=== PATIENT | male | born 1960 | race Caucasian/White ===

== ENCOUNTER 2017-03-27 20:03 | Emergency (ER) | payer OTHER ==
[~2017-03-27 20:03] MED LIST: CRESTOR40 MG; KEFLEX500 MG PO
[2017-03-27] MEDS ORDERED: ASPIRIN81 M1 PO (20:14)
[2017-03-27] MEDS ORDERED: FISH OIL 11000 MG/CA PO (20:14)
[2017-03-27] MEDS ORDERED: MULTIVITAMINS1 EAC6 PO (20:15)
[2017-03-27 20:35] LABS: URINE LEUKOCYTE ESTERASE NEGATIVE (NEG); URINE PROTEIN MODERATE (NEG)
[2017-03-27 20:36] LABS: URINE APPEARANCE CLOUDY; URINE BILIRUBIN NEGATIVE (NEG); URINE BLOOD LARGE (NEG); URINE COLOR YELLOW; URINE GLUCOSE (UA) MODERATE (NEG); URINE KETONE NEGATIVE (NEG); URINE NITRITE NEGATIVE (NEG)
[2017-03-27 20:40] LABS: BASO % 0.5 % (0-2); EOS % 1.8 % (0-7); EOSINOPHIL ABSOLUTE COUNT 0.1 tho/cmm (0.0-0.7); HGB-HEMOGLOBIN 15.1 gm/dl (13.5-17.0); LYMPH % 33.9 % (20-45); LYMPH ABSOLUTE COUNT 2.7 tho/cmm (0.8-4.5); MCH (MEAN CORPUSCULAR HGB) 31.6 pg (28.0-32.0); MCHC MEAN CORPUSCULAR HGB CONC 35.1 % (32.0-36.0); MEAN PLATELET VOLUME 10.9 cmc (9.4-12.4); MONO % 6.8 % (0-12); MONOCYTE ABSOLUTE COUNT 0.5 tho/cmm (0.0-1.2); NEUTROPHIL ABSOLUTE COUNT 4.5 tho/cmm (1.6-8.0); NEUTROPHIL-AUTOMATED 4.5 tho/cmm (1.6-8.0); PLATELET COUNT 250 tho/cmm (150-450); RED BLOOD COUNT 4.78 mil/cmm (4.40-5.70); RED CELL DISTRIBUTION WIDTH 12.2 % (12.4-16.4)
[2017-03-27 20:52] LABS: ANION GAP 12 mmol/L (0-20); BLOOD UREA NITROGEN 19 mg/dl (6-24); CALCIUM 9.3 mg/dl (8.5-10.5); CARBON DIOXIDE-VENOUS 26 mmol/L (22-32); CHLORIDE 102 mmol/l (96-110); CREATININE 1.56 mg/dl (0.60-1.30); GLUCOSE 324 mg/dL (70-110); POTASSIUM 4.2 mmol/L (3.7-5.1); SODIUM 136 mmol/L (135-145); eGFR VALUE FOR BLACK 56 mL/Min
[2017-03-27 20:54] LABS: URINE AMORPHOUS 1+; URINE EPITHELIAL CELLS RARE /[HPF] (0-10); URINE WBC 0 /[HPF] (0-5)
[2017-03-27] MEDS ORDERED: NORCO 5/3251 TAB PO (21:45)
[2017-03-27] MEDS ORDERED: FLOMAX0.4 M1 PO (21:45)
[2017-03-27] MEDS ORDERED: ZOFRAN ODT4 MG PO (21:45)
== END 2017-03-27 21:56 ==
LOC: EDMED 20:03
PROVIDERS: Emergency Medicine
DX: N13.2 Hydronephrosis with renal and ureteral calculous obstruction (principal); E78.1 Pure hyperglyceridemia
CPT/HCPCS: J1170; J1885; J2405